=== PATIENT | male | born 1960 | race Caucasian/White ===

== ENCOUNTER 2019-10-31 12:51 | Emergency (ER) | payer OTHER ==
[~2019-10-31] VITALS: Ht 182.9 cm; Wt 86.3 kg
[~2019-10-31 12:51] MED LIST: AMLODIPINE BESYL5 MG PO; BUPROPION HCL100 M1 PO; ULTRAM50 MG PO; XANAX0.25 MG PO
[2019-10-31] MEDS ORDERED: ONDANSETRON HCL 4 MG ORAL DISINTEGRATING TAB PO ONE (13:45)
[2019-10-31] MEDS ORDERED: HYDROMORPHONE 2MG/ML 2 MG/ML ML IM ONE (13:45)
--- NOTE | 2019-10-31 13:55 | Emergency Department Note ---
History of Present Illnes History of Present Illness Chief Complaint: Back Pain History of Present Illness This is a 59 year old male . Arrival Mode: Car Additional Treatment UNDERWRITING ANALYST: none Onset (how long ago): day(s) (2) Location: lumbar Quality: sharp Radiation: back, other (hips) Severity: severe Onset quality: gradual Duration (how long): day(s) (2) Timing of current episode: constant Progression: unchanged Relieving factors: none Associated symptoms: denies other symptoms Treatments prior to arrival: none Risk factors: laminectomy in past and hx of chronic back pain usually relieved with NSAID Previous service: one or more referrals Past Medical/Family History Physician Review I have reviewed the patient's past medical and family history. Any updates have been documented here. Past Medical History Recent Fever: No Clinical Suspicion of Infectio: No New/Unexplained Change in Ment: No Past Medical History: Hypertension Other Medical History: BACK SURGERY Other Surgery: BACK SX Social History Smoking Cessation: Current every day smoker Alcohol Use: Daily (3 beers daily) Any Illegal Drug Use: No TB Exposure/Symptoms: No Physically hurt or threatened: No Other Last Tetanus: UNKNOWN Any Pre-Existing Lines (PICC,: No Is patient up to date on immun: No Review of Systems Review of Systems Constitutional: no symptoms EENTM: no symptoms Cardiovascular: no symptoms Respiratory: no symptoms Gastrointestinal: no symptoms Genitourinary: no symptoms Musculoskeletal: no symptoms Neurological: no symptoms Psychological: no symptoms Endocrine: no symptoms Hematological/Lymphatic: no symptoms Review of other systems All other systems reviewed and negative. Physical Exam Related Data Allergies: Coded Allergies: Penicillins (Verified Allergy, Mild, RASH, 05/05/12) Vital signs reviewed: Yes Physical Exam CONSTITUTIONAL Constitutional: well-developed, well-nourished HENT HENT: normocephalic, atraumatic EYES NECK Neck: ROM normal, supple PULMONARY Pulmonary: effort normal, breath sounds normal CARDIOVASCULAR Cardiovascular: regular rhythm, heart sounds normal, intact distal pulses, capillary refill normal, normal rate GASTROINTESTINAL Abdominal: soft, nontender, bowel sounds normal, other (no pulsatile mass appreciated) GENITOURINARY Genitourinary: exam deferred SKIN Skin: warm, dry MUSCULOSKELETAL Musculoskeletal: other (pain with ROM to lower back no point tenderness no perineum paraesthesias. positive SLR at 45 degrees) NEUROLOGICAL Neurological: alert, oriented x 3, DTRs normal PSYCHOLOGICAL Psychological: mood/affect normal, behavior normal, thought content normal, judgement normal Critical Care Time Subsequent provider I assumed direction of critical care for this patient from another provider of my specialty. Assessment & Plan Assessment & Plan Final Impression: (1) LOW BACK PAIN Assessment & Plan motrin 600 mg po tid and flexeril 5 mg po tid # 15. Follow with PMD 48 hours Depart Disposition: HOME, SELF-long-term Meds Reported Medications Bupropion Hcl (BUPROPION HCL SR) 100 Mg Tablet.er, 100 MG PO BID 01/04/14 Amlodipine Besylate (AMLODIPINE BESYLATE) 5 Mg Tablet, 5 MG PO DAILY, 0 Refills 05/05/12 Medications in the ED motrin 600 mg po tid and flexeril 5 mg po tid as out patient JASON TORREZ MD October 31, 2019 13:55
[2019-10-31] MEDS ORDERED: MORPHINE SULFATE 2 MG/ML SYR 1ML IV STA (14:04)
[2019-10-31] MEDS ORDERED: ONDANSETRON HCL 4 MG ORAL DISINTEGRATING TAB ONE (14:10)
[2019-10-31] MEDS ORDERED: MORPHINE SULFATE INJ 4 MG/ML INJ 1ML ONE (14:10)
[2019-10-31 14:34] VITALS: BP 174/91
== END 2019-10-31 14:43 | disposition home or self-care (01) ==
LOC: FSED 12:51
DX: M54.5 Low back pain (principal); G89.29 Other chronic pain; I10 Essential (primary) hypertension; F17.210 Nicotine dependence, cigarettes, uncomplicated
CPT/HCPCS: 96372; 99283; J1170; J2270 ×2; Q0162